=== PATIENT | male | born 1990 | race Caucasian/White ===

== ENCOUNTER 2020-11-04 11:04 | Emergency (ER) | payer BC ==
--- NOTE | 2020-11-04 11:22 | EDM.PDOC ---
ED HPI GENERAL MEDICAL PROBLEM - General Stated Complaint: COUGHING SOB Time Seen by Provider: 11/04/20 11:05 Source of Information: Reports: Patient History Limitations: Reports: No Limitations - History of Present Illness INITIAL COMMENTS - FREE TEXT/NARRATIVE: HISTORY AND PHYSICAL: History of present illness: Patient is a 30-year-old male who presents to the emergency room with complaints of sinus pressure, stuffy nose and mild headache x 2 days. 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 Patient denies any fever, chills, change in vision, syncope or near syncope. Denies any chest pain, back pain, shortness of breath or cough. Denies any abdominal pain, nausea, vomiting, diarrhea, constipation or dysuria. Has not noted any blood in urine or stool. Patient has been eating and drinking appropriately. Review of systems: As per history of present illness and below otherwise all systems reviewed and negative. Past medical history: As per history of present illness and as reviewed below otherwise noncontributory. Surgical history: As per history of present illness and as reviewed below otherwise noncontr ibutory. Social history: See social history for further information Family history: As per history of present illness and as reviewed below otherwise noncontributory. Physical exam: General: Well developed and well nourished the 1-year-old male. Alert and orientated x 3. Nontoxic in appearance and in no acute distress. Vital signs are stable and have been reviewed by me. Nursing notes were reviewed. HEENT: Atraumatic, normocephalic, pupils equal and reactive bilaterally, negative for conjunctival pallor or scleral icterus, mucous membranes moist, TMs normal bilaterally, throat clear, neck supple, nontender, trachea midline. No drooling or trismus noted. No meningeal signs. No hot potato voice noted. Lungs: Clear to auscultation, breath sounds equal bilaterally, chest nontender. Normal work of breathing, no accessory muscles used. Heart: S1S2, regular rate and rhythm without overt murmur Abdomen: Soft, nondistended, nontender. Negative for masses or hepatosplenomegaly. Negative for costovertebral tenderness. Pelvis: Stable nontender. Skin: Intact, warm, dry. No lesions or rashes noted. Hematologic: No petechiae or purpra. Mucosa appropriate color and normal nail bed color and refill. Extremities: Atraumatic, moves all extremities per self without difficulty or deficits, negative for cords or calf pain. Neurovascular unremarkable. Neuro: Awake, alert, oriented. Cranial nerves II through XII unremarkable. Cerebellum unremarkable. Motor and sensory unremarkable throughout. Exam nonfocal. Psychiatric: Mood and affect are appropriate. Normal thought process. Answering questions appropriately. Notes: Negative Covid screening. Otherwise the patient's physical exam is unremarkable and his vital signs are stable. As the symptoms have been only going on for 1 to 2 days I do not feel he needs antibiotics for the sinus symptoms. I did encourage him to follow-up with his primary care provider and/or the respiratory clinic if he feels he needs repeat Covid screening if his symptoms continue. I have talked with the patient about today's findings, in addition to providing specific details for plan of care. Reassessment at the time of disposition demonstrates that the patient is in no acute distress. The patient is stable for discharge, counseling was provided and we discussed in great detail signs and symptoms that would prompt them to return to the Emergency Department. Medication, follow up and supportive care measures were reviewed and discussed. Voices understanding and is agreeable to plan of care. Denies any further questions or concerns at this time. Diagnostics: Coronavirus Therapeutics: None Prescription: None Impression: Sinusitis Plan: 1. Your COVID-19 screening is negative. If you are not in close contact to someone who is positive, you should continue to practice physical distancing and limit your interactions with others as much as possible. You may attend work and attend/perform essential activities if you are not sick. If you continue to feel unwell please stay home. 2. COVID-19 testing is not 100% accurate, so if you have symptoms that continue that lead you to believe you have COVID, you can get re-tested in a few days at our respiratory clinic. 3. You can take NyQuil during the evening to help get a restful night sleep. Alternate Tylenol and ibuprofen as needed for pain and fever management. 4. The [place] COVID 19 Hotline phone number , They are open Friday - Friday 7am - 7pm. 5. Follow up with your primary care provider for re-evaluation and if your symptoms should worsen, new symptoms develop or you feel like you are not improving you are always welcome to return to the emergency room. Definitive disposition and diagnosis as appropriate pending reevaluation and review of above. - Related Data Allergies Allergy/AdvReac Type Severity Reaction Status Date / Time No Known Allergies Allergy Verified 11/04/20 11:27 Home Meds: Home Meds . [No Known Home Meds] 11/04/20 [History] ED ROS ENT - Review of Systems Review Of Systems: Comprehensive ROS is negative, except as noted in HPI. ED EXAM, ENT - Physical Exam Exam: See Below (See dictation) Course - Vital Signs Last Recorded V/S: Last Vital Signs Temp 98.3 F 11/04/20 11:23 Pulse 70 11/04/20 11:23 Resp 16 11/04/20 11:23 BP 134/84 11/04/20 11:23 Pulse Ox 97 11/04/20 11:23 - Orders/Labs/Meds Labs: Laboratory Tests 11/04/20 Range/Units 11:22 SARS-CoV-2 RNA (MICHEAL) NEGATIVE (NEGATIVE) Departure - Departure Time of Disposition: 12:07 Disposition: Home, Self-Care 01 Clinical Impression: Sinusitis Qualifiers: Sinusitis location: frontal Chronicity: acute Recurrence: non-recurrent Qualified Code(s): J01.10 - Acute frontal sinusitis, unspecified - Discharge Information Instructions: Sinusitis, Adult, [id number] Referrals: Cheo Douglass MD [Primary Care Provider] - Additional Instructions: The following information is given to patients seen in the emergency department who are being discharged to home. This information is to outline your options for follow-up care. We provide all patients seen in our emergency department with a follow-up referral. The need for follow-up, as well as the timing and circumstances, are variable depending upon the specifics of your emergency department visit. If you don't have a primary care physician on staff, we will provide you with a referral. We always advise you to contact your personal physician following an emergency department visit to inform them of the circumstance of the visit and for follow-up with them and/or the need for any referrals to a consulting specialist. The emergency department will also refer you to a specialist when appropriate. This referral assures that you have the opportunity for follow-up care with a specialist. All of these measure are taken in an effort to provide you with optimal care, which includes your follow-up. Under all circumstances we always encourage you to contact your private physician who remains a resource for coordinating your care. When calling for follow-up care, please make the office aware that this follow-up is from your recent emergency room visit. If for any reason you are refused follow-up, please contact the [facility] Emergency Department at and asked to speak to the emergency department charge nurse. [facility] [address] [place] [id number] [id number] Thank you for choosing the [facility] emergency department in [place] for your medical needs today. It was a pleasure caring for you. Today you were seen in the emergency department for COVID testing 1. Your COVID-19 screening is negative. If you are not in close contact to someone who is positive, you should continue to practice physical distancing and limit your interactions with others as much as possible. You may attend work and attend/perform essential activities if you are not sick. If you continue to feel unwell please stay home. 2. COVID-19 testing is not 100% accurate, so if you have symptoms that continue that lead you to believe you have COVID, you can get re-tested in a few days at our respiratory clinic. 3. You can take NyQuil during the evening to help get a restful night sleep. Alternate Tylenol and ibuprofen as needed for pain and fever management. 4. The [place] COVID 19 Hotline phone number , They are open Friday - Friday 7am - 7pm. 5. Follow up with your primary care provider for re-evaluation and if your symptoms should worsen, new symptoms develop or you feel like you are not improving you are always welcome to return to the emergency room. Sepsis Event Note (ED) - Focused Exam Vital Signs: Vital Signs Temp Pulse Resp BP Pulse Ox 11/04/20 11:23 98.3 F 70 16 134/84 97
[2020-11-04 12:04] LABS: CORONAVIRUS COVID-19 NAA NEGATIVE (NEGATIVE)
[2020-11-04 12:19] LABS: INFLUENZA A NAA NEGATIVE (NEGATIVE); INFLUENZA B NAA NEGATIVE (NEGATIVE)
== END 2020-11-04 12:25 | disposition home or self-care (01) ==
LOC: MW.ED 11:04
DX: J01.10 Acute frontal sinusitis, unspecified (principal); Z20.828 Contact with and (suspected) exposure to other viral communicable diseases
CPT/HCPCS: 99282; 99283; U0002